=== PATIENT | male | born 1955 | race Caucasian/White ===

== ENCOUNTER 2024-06-01 16:22 | Emergency (ER) | payer MEDICARE ==
[~2024-06-01] VITALS: Ht 175.3 cm; Wt 76.8 kg
[2024-06-01 16:28] VITALS: TEMP 97.8
[2024-06-01 16:58] LABS: BASO % 0.3 % (0.0-2.0); EOS % 0.3 % (0.0-4.0); GRAN # 7.3 K/mm3 (1.4-6.5); GRAN % 74.8 % (42.2-75.2); HEMOGLOBIN 13.4 g/dl (13.5-18.0); LYMPH % 9.9 % (20.0-51.0); MEAN CELL VOLUME 102 fl (80.0-100.0); MEAN CORPUSCULAR HEMOGLOBIN 38 pg (27-31); MEAN CORPUSCULAR HGB CONC 37 g/dl (33.0-37.0); MONO # 1.4 K/mm3 (0.1-0.6); MONO % 14.1 % (1.7-9.3); PLATELET COUNT 137 K/mm3 (130-400); RED BLOOD COUNT 3.56 M/mm3 (4.20-5.60); REDCELL DISTRIBUTION WIDTH-CV 13.5 % (11.5-14.5)
[2024-06-01 16:59] LABS: HEMATOCRIT 36.3 % (42.0-52.0)
[2024-06-01 17:18] LABS: ALANINE AMINOTRANSFERASE 52 U/L (0-55); ALBUMIN 3.9 g/dL (3.4-4.8); ALKALINE PHOSPHATASE 65 U/L (40-150); ANION GAP 12 mmol/L (7-16); AST,SGOT 56 U/L (5-34); BILIRUBIN,TOTAL 0.8 mg/dL (0.2-1.2); BLOOD UREA NITROGEN 13 mg/dL (8-26); CALCIUM 9.6 mg/dL (8.4-10.2); CHLORIDE 102 mEq/L (98-107); CREATININE, serum 1.15 mg/dL (0.72-1.25); GLUCOSE 122 mg/dL (70-99); POTASSIUM 3.9 mEq/L (3.5-4.5); SODIUM 135 mEq/L (136-145); TOTAL PROTEIN 6.8 g/dl (6.2-8.1)
[2024-06-01 17:49] LABS: TROPONIN-I < 0.010 ng/mL (0.00-0.033)
[2024-06-01 18:12] LABS: COLLECTION METHOD CLEAN CATCH
[2024-06-01 18:16] LABS: URINE APPEARANCE CLEAR (CLEAR/HAZY); URINE BLOOD NEGATIVE (NEGATIVE); URINE COLOR YELLOW (YELLOW); URINE GLUCOSE NEGATIVE (NEGATIVE); URINE KETONE NEGATIVE (NEGATIVE); URINE NITRATE NEGATIVE (NEGATIVE); URINE PROTEIN(semi-quant) NEGATIVE (NEGATIVE)
[2024-06-01 19:03] VITALS: BP 1608/93; PULSE 90
== END 2024-06-01 19:15 | disposition home or self-care (01) ==
LOC: COL.ER 16:22
PROVIDERS: Physician Assistant
DX: S12.000A Unspecified displaced fracture of first cervical vertebra, initial encounter for closed fracture (principal); W19.XXXA Unspecified fall, initial encounter